=== PATIENT | female | born 1995 | race African-American/Black ===

== ENCOUNTER 2022-11-02 20:51 | Emergency (ER) | payer OTHER, SELFPAY ==
--- NOTE | ~2022-11-02 | XR_ITS ---
Lumbosacral Spine: AP and lateral views Clinical History: Pain Findings: The normal lordotic curve is maintained. The vertebral bodies and posterior elements are i ntact. The intervertebral disc spaces are preserved. The sacroiliac joints are normally outlined. Impression: No significant abnormality. Reviewed, dictated and finalized at [facility]. Impression: No significant abnormality.
--- NOTE | ~2022-11-02 | XR_ITS ---
Thoracic spine: Clinical Indication: Back pain AP and lateral views were performed. No fracture is seen. There is very mild dextroscoliosis of the thoracic spine. The intervertebral dis c spaces appear normal. Paravertebral soft tissues appear normal. Impression: No fracture or subluxation. Mild dextroscoliosis of the thoracic spine. Reviewed, dictated and finalized at location . Impression: No fracture or subluxation. Mild dextroscoliosis of the thoracic spine.
[2022-11-02 22:15] VITALS: BP 124/62; PULSE 68; RESP 16; TEMP 36.7; O2SAT 100
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
[2022-11-03] MEDS: IBUPROFEN 600 MG TABLET PO (00:14)
[2022-11-03 00:59] VITALS: BP 130/72; PULSE 72; RESP 15; TEMP 36.4; O2SAT 100
== END 2022-11-03 01:00 | disposition home or self-care (01) ==
LOC: ANHED 11-03 00:10
PROVIDERS: Emergency Provider Emergency Medicine
DX: M54.9 Dorsalgia, unspecified (principal); V49.40XA Driver injured in collision with unspecified motor vehicles in traffic accident, initial encounter
CPT/HCPCS: 72072; 72100; 81025; 99283; A9270

== ENCOUNTER 2023-08-19 13:56 | Emergency (ER) | payer OTHER, SELFPAY ==
--- NOTE | ~2023-08-19 | CT_ITS ---
CT abdomen pelvis w con Ordering provider: Ry Tay MD History: . Abdominal pain lower quadrants, vomiting and diarr . Comparison: None. Technique: CT abdomen with IV and without oral contrast. Radiation reduction technique utilized. DLP is 557.13 mGy. 100 mL Omnipaque 350 was given IV. Findings: VISUALIZED LOWER CHEST: Normal. UPPER ABDOMINAL ORGANS: Liver: Fat infiltration. Gallbladder: Normal. Spleen: Normal. Stomach/duodenum: Normal. Pancreas: Slightly prominent pancreatic duct. Follow-up advised. Adrenals: Normal. Kidneys: Normal. Urinary bladder: Slightly thickened wall most likely underfilled. Uterus: Normal. Ovary is shows bila teral follicles. VISUALIZED BOWEL AND MESENTERY: No evidence of diverticulitis. Fluid is seen in the colon which may i ndicate diarrhea or enteritis. Normal appendix. Fluid is seen in the small bowel otherwise The bowel is otherwise normal. No free air or free fluid. No mesenteric lymphadenopathy. Mesenteric lymph nodes are seen with the largest measures 1 cm. RETROPERITONEUM: Normal aorta. No retroperitoneal lymphadenopathy. MUSCULOSKELETAL: The superficial soft tissues are normal. Normal spine. IMPRESSION: No evidence of appendicitis, diverticulitis or intestinal obstruction. Fluid in the colon and distal small bowel which may indicate diarrhea or enteritis. Clinical correlat ion advised. Bilateral ovarian follicles with slightly larger right ovary than the left. Reviewed, dictated and finalized at location [facility]. IMPRESSION: No evidence of appendicitis, diverticulitis or intestinal obstruction. Fluid in the colon and distal small bowel which may indicate diarrhea or enteri tis. Clinical correlation advised. Bilateral ovarian follicles with slightly larger right ovary than the left.
[2023-08-19 14:14] VITALS: BP 100/78; PULSE 70; RESP 16; TEMP 36.3; O2SAT 97
--- NOTE | 2023-08-19 15:15 | ED.NAVMDI ---
HPI - Nausea/Vomiting/Diarrhea General Chief complaint: Nausea/Vomiting/Diarrhea <Stuart Gregorio APRN - Last Filed: 08/19/23 15:17> Stated complaint: n/v/d <Stuart Gregorio APRN - Last Filed: 08/19/23 15:17> Time Seen by Provider: 08/19/23 15:10 <Stuart Gregorio APRN - Last Filed: 08/19/23 15:17> Focused HPI: Andria is a 28-year-old female patient presenting to the emergency room today with complaints of nausea, vomiting, and diarrhea since Tuesday. She reports she has vomited twice and has had multiple diarrhea stools. Denies any blood in her stool. She denies any known fever, chills, or body aches. Does experience some abdominal cramping prior to vomiting or having diarrhea. States symptoms started after she ate at a restaurant. General: Well-developed, well nourished, in no apparent distress. Head: Normocephalic, atraumatic. Cardio: Regular rate and rhythm, s1 and s2 normal, no murmur appreciated. Resp: Clear to auscultation bilaterally, no rhonchi, rales, wheezing or rubs. Abdomen: Soft, pliable, bowel sounds present in all quadrants, non-tender to palpation, no organomegly, no CVAT tenderness.. Patient screened in triage and initial orders placed. Additional care and disposition to be based upon diagnostic testing and treatment. <Stuart Gregorio APRN - Last Filed: 08/19/23 15:17> Source: patient <Stuart Gregorio APRN - Last Filed: 08/19/23 15:17> Mode of arrival: ambulatory <Stuart Gregorio APRN - Last Filed: 08/19/23 15:17> Limitations: no limitations <Stuart Gregorio APRN - Last Filed: 08/19/23 15:17> History of Present Illness HPI Narrative: Patient 28-year-old female who presents emergency department chief complaint of nausea vomiting and diarrhea patient reports that having abdominal cramping and discomfort since Tuesday. The patient reports that she had multiple watery stools and reports he has vomited twice. The patient denies any blood in her diarrhea denies blood in her urine <Ry Tay MD - Last Filed: 08/19/23 18:03> Related Data Allergies/Adverse reactions: Allergies Allergy/AdvReac Type Severity Reaction Status Date / Time No Known Allergies Allergy Verified 08/19/23 15:59 <Stuart Gregorio APRN - Last Filed: 08/19/23 15:17> Review of Systems Review of Systems: A 10 system review of systems was completed on the patient and is negative except for what is stated in the HPI. Nursing and ancillary documentation was reviewed. <Ry Tya MD - Last Filed: 08/19/23 18:03> PMFSH Comments At the time of my signature, I reviewed and agree with the nursing past medical, surgical, social, and family history. There is no relevant family history pertinent to the patient complaint. <Stuart Gregorio APRN - Last Filed: 08/19/23 15:17> Exam Narrative: GENERAL: Well-appearing, well-nourished, and in no acute distress. HEAD: Normocephalic, atraumatic. EYES: PERRLA and EOMI. ENT: Nares clear, no rhinorrhea or epistaxis. Mucous membranes moist. NECK: Supple. CHEST: Clear to auscultation. No respiratory distress. HEART: Regular rate and rhythm. No murmur heard. Normal peripheral pulses. ABDOMEN: Soft, diffuse tenderness throughout the abdomen, nondistended, normal active bowel sounds. EXTREMITIES: Normal range of motion. No edema. SKIN: Warm, dry, no rash. NEURO: No focal deficits. Alert and oriented x3. PSYCH: Normal mood and affect. <Ry Tay MD - Last Filed: 08/19/23 18:03> Course Course Emergency Course: Portions of this record may have been created with voice recognition software. <Stuart Gregorio APRN - Last Filed: 08/19/23 15:17> Vital Signs Vital signs: Vital Signs Temperature 36.3 C L 08/19/23 14:14 Pulse Rate 70 08/19/23 14:14 Respiratory Rate 16 08/19/23 14:14 Blood Pressure 100/78 08/19/23 14:14 Pulse Oxim
[2023-08-19 15:36] LABS: Basophils Percent Auto 0.4 % (0.2-1.2); Hematocrit 46.5 % (37.0-47.0); Hemoglobin 15.7 g/dL (12.0-15.0); Immature Granulocyte Absolute 0.03 K/mm3 (0.00-0.031); Immature Granulocyte Percent A 0.4 % (0-0.5); Lymphocytes Percent Auto 11.7 % (18.3-44.2); Mean Corpuscular HGB Conc 33.8 g/dl (32-36); Mean Platelet Volume 9.6 fl (7.4-10.4); Monocytes Absolute Auto 0.6 K/mm3 (0.1-0.6); Monocytes Percent Auto 7.3 % (2.6-8.5); Neutrophils Absolute Auto 6.2 K/mm3 (1.3-6.7); Neutrophils Percent Auto 80.2 % (45.5-73.1); Platelet Count Result 333 k/mm3 (150-375); Red Blood Count 5.41 M/mm3 (4.2-5.4); Red Cell Distribution Width 13.1 % (11.5-14.5); White Blood Count 7.7 K/mm3 (4.5-10.0)
[2023-08-19 15:44] LABS: Appearance Urine Turbid (Clear); Bacteria Urine 4+ /hpf; Bilirubin Urine 2+ (Negative); Blood Urine Negative (Negative); Color Urine Dark Yellow (Yellow); Glucose Urine UA Negative (Negative); Ketones Urine 3+ mg/dL (Negative); Leukocyte Esterase Ur Negative LEU/UL (Negative); Mucus Urine Present /lpf; Need Manual Microscopic Reviewed; Nitrate Urine Negative (Negative); Non Pathogenic Casts >20; Protein Urine 2+ mg/dL (Negative); Specific Grav Ur 1.036 (1.001-1.035); Squamous Epithelial Cell Urine Many /hpf (Few); WBC Urine 21-50 /hpf (0-3); pH Urine 5.5 (5.0-9.0)
[2023-08-19 15:48] LABS: Add Urine Microscopic? YES
[2023-08-19 15:48] LABS: Alanine Aminotransferase 17 U/L (6-35); Albumin Level 4.9 g/dL (3.5-5.1); Alkaline Phosphatase 100 U/L (38-126); Anion Gap 12 mmol/L (4-12); Aspartate Amino Transferase 30 U/L (14-36); Bilirubin,Total 0.5 mg/dL (0.2-1.3); Blood Urea Nitrogen 16 mg/dL (7-17); Calcium 9.9 mg/dL (8.4-10.2); Carbon Dioxide 24 mmol/L (22-30); Chloride 101 mmol/L (98-107); Estimated Glomerular Filt Rate > 60; Glucose 95 mg/dL (65-110); Potassium 3.7 mmol/L (3.4-5.0); Sodium 137 mmol/L (137-145)
[2023-08-19 15:58] VITALS: BP 120/76; PULSE 94; RESP 15; O2SAT 100
[2023-08-19] MEDS: SODIUM CHLORIDE 0.9% IV 1,000 ML 999 ML IV CONT (17:27)
[2023-08-19] MEDS: ONDANSETRON INJ 4 MG/2 ML VIAL IV PUSH (17:29)
[2023-08-19] MEDS: DICYCLOMINE HCL INJ 20 MG/2 ML VIAL IM (17:31)
[2023-08-19 17:33] VITALS: BP 109/66; PULSE 100; RESP 15; O2SAT 100
[2023-08-19 18:53] VITALS: BP 123/74; PULSE 85; RESP 15; TEMP 36.6; O2SAT 100
== END 2023-08-19 18:55 | disposition home or self-care (01) ==
PROVIDERS: Nurse Practitioner Family; Emergency Provider Emergency Medicine
DX: K52.9 Noninfective gastroenteritis and colitis, unspecified (principal); N39.0 Urinary tract infection, site not specified
CPT/HCPCS: 36415; 74177; 80053; 81001; 81025; 85025; 87086; 87088; 96361; 96372; 96374; 99284; J0500; J2405; J7030; Q9967

== ENCOUNTER 2023-08-24 18:15 | Emergency (ER) | payer OTHER, SELFPAY ==
[2023-08-24 18:17] VITALS: BP 108/54; PULSE 115; RESP 16; TEMP 36.5; O2SAT 97
[2023-08-24 19:51] VITALS: BP 121/86; PULSE 117; RESP 14; TEMP 37; O2SAT 100
--- NOTE | 2023-08-24 20:27 | ED.NAVMDI ---
HPI - Nausea/Vomiting/Diarrhea General Chief complaint: Nausea/Vomiting/Diarrhea Stated complaint: n/v/d Time Seen by Provider: 08/24/23 19:56 History of Present Illness HPI Narrative: Patient is a 28-year-old female presenting with vomiting and diarrhea. States that she was here over the weekend with similar symptoms. She was diagnosed with gastroenteritis as well as UTI sent home with Zofran and Keflex. States that she has been taking these as prescribed. States that she initially improved over several days. She then ate some pizza rolls and the next morning she again began vomiting and had numerous episodes of diarrhea. She became concerned that the symptoms had returned. States that she actually has not vomited for about 8-9 hours but she continues to have episodes of diarrhea. Complains of intermittent migrating abdominal pains. No fevers, dysuria, hematuria, vaginal bleeding or discharge, flank pain. No further complaints. Related Data Allergies Allergy/AdvReac Type Severity Reaction Status Date / Time No Known Allergies Allergy Verified 08/24/23 18:19 Review of Systems Review of Systems: All systems reviewed & are unremarkable except as noted in HPI and below Exam Narrative: GENERAL: Well-appearing, and in no acute distress. Pleasant cooperative HEAD: Normocephalic, atraumatic. EYES: PERRLA and EOMI. ENT: Mucous membranes moist. NECK: Supple. CHEST: Clear to auscultation. No respiratory distress. HEART: Regular rate and rhythm ABDOMEN: Soft, nontender, nondistended EXTREMITIES: Normal range of motion. SKIN: Warm, dry, no rash. NEURO: No focal deficits. Alert and oriented x3. PSYCH: Normal mood and affect. Course Vital Signs Vital signs: Vital Signs Temperature 97.7 F 08/24/23 18:17 Pulse Rate 115 H 08/24/23 18:17 Respiratory Rate 16 08/24/23 18:17 Blood Pressure 108/54 L 08/24/23 18:17 Pulse Oximetry 97 08/24/23 18:17 Oxygen Delivery Room Air 08/24/23 18:17 Temperature 98.6 F 08/24/23 19:51 Pulse Rate 117 H 08/24/23 19:51 Respiratory Rate 14 08/24/23 19:51 Blood Pressure 121/86 08/24/23 19:51 Pulse Oximetry 100 08/24/23 19:51 Oxygen Delivery Room Air 08/24/23 19:51 MDM - Nausea/Vomiting/Diarrhea MDM Narrative Medical decision making narrative: 28-year-old female presenting with vomiting and diarrhea for almost a week. Patient mildly tachycardic on arrival, was vitals are within normal limits. Exam is unremarkable. Abdomen is soft and benign. Her CT scan from several days ago showed a diarrheal state with possible enteritis. Blood work today with mild hypokalemia. Likely secondary to her ongoing diarrhea. Patient is tolerating p.o. intake. She has had a couple more episodes of diarrhea. Will replete the potassium and start her on loperamide for symptomatic control. Discussed appropriate diet and supportive care. Appropriate return precautions given. Patient is agreeable with this plan. Discharged in stable condition. Differential Diagnosis Differential diagnosis: Likely traveler's diarrhea, food poisoning, gastroenteritis and dehydration Medical Records Attestation: I reviewed the patient's medical records. Lab Data Attestation: I reviewed the patient's lab results. 08/24/23 20:34 08/24/23 20:34 Labs: Lab Results 08/24/23 08/24/23 Range/Units 20:34 21:34 WBC 6.3 (4.5-10.0) K/mm3 RBC 5.21 (4.2-5.4) M/mm3 Hgb 14.9 (12.0-15.0) g/dL Hct 43.5 (37.0-47.0) % MCV 83.5 (80-100) fl MCH 28.6 (26-34) pg MCHC 34.3 (32-36) g/dl RDW 12.2 (11.5-14.5) % Plt Count 394 H (150-375) k/mm3 MPV 10.0 (7.4-10.4) fl Immature Gran % (Auto) Not Reportable Neut % (Auto) Not Reportable Lymph % (Auto) Not Reportable Grayson % (Auto) Not Reportable Eos % (Auto) Not Reportable Baso % (Auto) Not Reportable Lymph # (Auto) Not Reportable Grayson # (Auto) Not Reportable
[2023-08-24] MEDS: SODIUM CHLORIDE 0.9% IV 1,000 ML 999 ML IV CONT (20:30)
[2023-08-24] MEDS: LOPERAMIDE HCL 2 MG CAPSULE 4 MG PO (20:38)
[2023-08-24 20:44] LABS: Hematocrit 43.5 % (37.0-47.0); Hemoglobin 14.9 g/dL (12.0-15.0); Mean Corpuscular HGB Conc 34.3 g/dl (32-36); Mean Corpuscular Hemoglobin 28.6 pg (26-34); Mean Corpuscular Volume 83.5 fl (80-100); Platelet Count Result 394 k/mm3 (150-375); Red Blood Count 5.21 M/mm3 (4.2-5.4); Red Cell Distribution Width 12.2 % (11.5-14.5); White Blood Count 6.3 K/mm3 (4.5-10.0)
[2023-08-24 20:57] LABS: Alanine Aminotransferase 16 U/L (6-35); Alkaline Phosphatase 64 U/L (38-126); Anion Gap 14 mmol/L (4-12); Aspartate Amino Transferase 29 U/L (14-36); Bilirubin,Total 0.6 mg/dL (0.2-1.3); Blood Urea Nitrogen 11 mg/dL (7-17); Carbon Dioxide 22 mmol/L (22-30); Chloride 99 mmol/L (98-107); Estimated CRCL calculation 113 ml/min; Estimated Glomerular Filt Rate > 60; Glucose 93 mg/dL (65-110); Lipase 353 U/L (23-300); Potassium 3.2 mmol/L (3.4-5.0); Sodium 135 mmol/L (137-145)
[2023-08-24 21:08] LABS: Band Neutrophils Percent 6 % (0-6); Lymphocytes Absolute Manual 2.83 K/mm3 (1.1-4.5); Monocytes Absolute Manual 0.94 K/mm3 (0.1-0.90); Monocytes Percent Manual 15 % (3-9); Neutrophils Absolute Manual 2.52 K/mm3 (1.7-7.2); Neutrophils Percent Manual 34 % (46-73); Total Cells Counted 100
[2023-08-24 21:09] LABS: Atypical Lymphocytes Present; Platelet Estimate Increased (Adequate); Schistocytes None Seen
[2023-08-24] MEDS: LOPERAMIDE HCL 2 MG CAPSULE PO (21:54)
[2023-08-24] MEDS: POTASSIUM CHLORIDE 20 MEQ ER TABLET 40 MEQ PO (21:54)
[2023-08-24 21:55] LABS: Appearance Urine Cloudy (Clear); Bacteria Urine 4+ /hpf; Bilirubin Urine Negative (Negative); Blood Urine Negative (Negative); Color Urine Dark Yellow (Yellow); Glucose Urine UA Negative (Negative); Ketones Urine 4+ mg/dL (Negative); Leukocyte Esterase Ur 2+ LEU/UL (Negative); Need Manual Microscopic Reviewed; Nitrate Urine Negative (Negative); Non Pathogenic Casts 0-2; Protein Urine 1+ mg/dL (Negative); Specific Grav Ur 1.028 (1.001-1.035); Squamous Epithelial Cell Urine Many /hpf (Few); WBC Urine 21-50 /hpf (0-3)
[2023-08-24 21:56] LABS: Add Urine Microscopic? YES
== END 2023-08-24 22:07 | disposition home or self-care (01) ==
PROVIDERS: Emergency Provider Emergency Medicine
DX: R19.7 Diarrhea, unspecified (principal); E87.6 Hypokalemia
CPT/HCPCS: 36415; 80053; 81001; 81025; 83690; 85025; 87086; 87088; 96360; 96361; 99283; A9270; J7030